=== PATIENT | male | born 2005 | race Caucasian/White ===

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

== ENCOUNTER → 2024-08-02 | Outpatient (CLI) | payer OTHER, SELFPAY | LOC: M SOG 07:51 | PROVIDERS: ATTEND Physician Assistant | DX: M54.50 Low back pain, unspecified (principal); M47.896 Other spondylosis, lumbar region ==

== ENCOUNTER → 2024-10-21 | Outpatient (CLI) | payer BC | LOC: M PLAIMG 07:53 | PROVIDERS: ATTEND Physician Assistant | DX: M54.41 Lumbago with sciatica, right side (principal) ==

== ENCOUNTER 2025-02-04 06:17 | Observation (INO) | payer BC ==
[~2025-02-04] VITALS: Ht 177.8 cm; Wt 97.4 kg
[2025-02-04 01:24] VITALS: BP 109/63; TEMP 98.1; O2SAT 94
[2025-02-04 01:54] VITALS: BP 110/61; TEMP 98.1; O2SAT 95
[~2025-02-04 06:17] MED LIST: CYCL-707 PO; NAPR-885 PO
[2025-02-04] MEDS ORDERED: LR 1,000 ML IV SCH (06:25)
[2025-02-04] MEDS ORDERED: ACET-907 PO (06:53)
[2025-02-04] MEDS: VANCOMYCIN 500MG/10ML VIAL As Ordered ONE (07:08)
[2025-02-04] MEDS: ceFAZolin SOD 2 GM IV ONCE IV ONE (08:16)
[2025-02-04] MEDS ORDERED: MIDAZOLAM INJ 2 MG/2 ML VIAL As Ordered ONE (08:17)
[2025-02-04] MEDS ORDERED: dexAMETHasone 4 MG/ML 1 ML VIAL As Ordered ONE (08:17)
[2025-02-04] MEDS ORDERED: ROCURONIUM BROMIDE 50MG/5ML VIAL As Ordered ONE (08:17)
[2025-02-04] MEDS ORDERED: LIDOCAINE 2% 100 MG/5 ML SDV (FOR ANES.) As Ordered ONE (08:17)
[2025-02-04] MEDS ORDERED: REMIFENTANIL 1MG VIAL As Ordered ONE (08:17)
[2025-02-04] MEDS ORDERED: PHENYLEPHRINE 10MG/ML 1ML VIAL As Ordered ONE (08:17)
[2025-02-04] MEDS ORDERED: SUGAMMADEX SODIUM 200 MG/2 ML VIAL As Ordered ONE (08:17)
[2025-02-04] MEDS ORDERED: ONDANSETRON 4MG 2ML VIAL As Ordered ONE (08:17)
[2025-02-04] MEDS ORDERED: dexmedeTOMIDine (4 MCG/ML) 200 MCG/50 ML BTL As Ordered ONE (08:17)
[2025-02-04] MEDS ORDERED: ACETAMINOPHEN 1000MG/100ML IV BAG As Ordered ONE (08:28)
[2025-02-04] MEDS: methylPREDNISolone SUSP 40 MG/ML 1 ML VIAL As Ordered ONE (10:34)
[2025-02-04] MEDS ORDERED: ONDANSETRON 4MG 2ML VIAL IV PRN ×2 (12:05→14:00)
[2025-02-04] MEDS: HYDROMORPHONE HCL 0.5 MG/0.5 ML SYRINGE IV PRN (12:21)
[2025-02-04] MEDS ORDERED: HOME MED LIST COMPLETE! XX SCH (14:25)
[2025-02-04 14:54] VITALS: BP 122/76; TEMP 97.9; O2SAT 94
[2025-02-04 16:59] VITALS: BP 128/60; TEMP 98.1; O2SAT 98
[2025-02-04] MEDS: LR 1,000 ML IV SCH (17:39)
[2025-02-04] MEDS: ceFAZolin SODIUM 2 GM in DEXTROSE 5% (D5W) ADV/MINI-BAG 50 ML IV SCH (17:39)
[2025-02-04] MEDS: NS (Normal Saline) 0.9% 1,000 ML IV ONE (18:28)
[2025-02-04] MEDS: SENNA 8.6 MG TAB PO SCH (20:33)
[2025-02-04] MEDS: DOCUSATE SODIUM 100 MG CAPSULE PO SCH (20:34)
[2025-02-04 21:10] VITALS: BP 127/68; TEMP 98.1; O2SAT 96
[2025-02-04] MEDS: ACETAMINOPHEN 325 MG TAB PO PRN (23:08)
[2025-02-04] MEDS: diazePAM 2 MG TAB PO PRN (23:13)
[2025-02-05] VITALS: BP 114/69; TEMP 97.9; O2SAT 95
[2025-02-05 04:35] VITALS: BP 123/72; TEMP 98.1; O2SAT 94
[2025-02-05 06:50] LABS: PLATELET COUNT, AUTOMATED 209 10^3/uL (150-450)
[2025-02-05 07:16] LABS: CALCIUM LEVEL 8.7 MG/DL (8.5-10.1); CARBON DIOXIDE LEVEL 23 MMOL/L (20-31); CHLORIDE LEVEL 105 MMOL/L (98-107); CREATININE FOR GFR 0.88 MG/DL (0.70-1.30); GLOMERULAR FILTRATION RATE > 90.0 (>60); POTASSIUM SERUM 3.6 MMOL/L (3.5-5.1); SODIUM LEVEL 142 MMOL/L (136-145)
[2025-02-05 08:00] VITALS: BP 126/72; TEMP 97.3; O2SAT 95
[2025-02-05 12:00] VITALS: BP 131/78; TEMP 97.9; O2SAT 95
[2025-02-05] MEDS ORDERED: TIZA2CAP PO (16:56)
[2025-02-05] MEDS ORDERED: OXYC1TAB23 PO (16:56)
[2025-02-05] MEDS ORDERED: SENN18TA PO (16:56)
[2025-02-05] MEDS ORDERED: HEPARIN SOD 5000 UNITS/ML 1 ML VIAL/SYRINGE SQ SCH (21:00)
== END 2025-02-05 18:15 | disposition home or self-care (01) ==
LOC: M SDC 06:17 → M RR INP 06:18 → EDSTATUS 07:30 → M MS5PR 13:15
PROVIDERS: ADMIT Student in an Organized Health Care Education/Training Program; ATTEND Neurological Surgery
DX: M51.16 Intervertebral disc disorders with radiculopathy, lumbar region (principal); Z88.5 Allergy status to narcotic agent; Z79.899 Other long term (current) drug therapy; F17.200 Nicotine dependence, unspecified, uncomplicated
CPT/HCPCS: 36415; 63030; 72110; 76000; 80048; 85027; 86850; 86900; 86901; 88304; 96365; 96366; J0131; J0665; J0666; J0690; J1010; J1100; J1171; J2250; J2371; J2405; J3010